=== PATIENT | female | born 1975 ===

== ENCOUNTER 2016-10-26 15:42 | Outpatient (RCR) | payer BC | END 2016-11-18 | disposition home or self-care (01) | LOC: WCC 15:42 | DX: C50.411 Malignant neoplasm of upper-outer quadrant of right female breast (principal); L59.8 Other specified disorders of the skin and subcutaneous tissue related to radiation; W88.8XXS Exposure to other ionizing radiation, sequela; Z90.13 Acquired absence of bilateral breasts and nipples | CPT/HCPCS: G0277; G0463; 99204 ==

== ENCOUNTER 2016-11-25 13:00 | Outpatient (RCR) | payer BC | END 2016-12-19 | disposition home or self-care (01) | LOC: WCC 13:00 | DX: L59.8 Other specified disorders of the skin and subcutaneous tissue related to radiation (principal); C50.411 Malignant neoplasm of upper-outer quadrant of right female breast; W88.8XXS Exposure to other ionizing radiation, sequela; Z90.11 Acquired absence of right breast and nipple; Z85.3 Personal history of malignant neoplasm of breast | CPT/HCPCS: G0277 ×3 ==